=== PATIENT | male | born 1990 | race Caucasian/White ===

== ENCOUNTER 2017-08-03 21:02 | Emergency (ER) | payer OTHER ==
[2017-08-03 21:04] VITALS: BP 145/87
--- NOTE | 2017-08-03 22:59 | ED SKIN/ALLERGY COMPLAINT ---
History of Present Illness General Chief Complaint: Animal/Insect Bite Stated Complaint: "BIT BY TICK, RING AROUND IT" PER PT Source: patient Exam Limitations: no limitations Vital Signs & Intake/Output Vital Signs & Intake/Output Vital Signs Date Time Temp Pulse Resp B/P B/P Pulse O2 O2 Flow FiO2 Mean Ox Delivery Rate 08/04 2103 97.8 82 18 145/87 97 Room Air Allergies Coded Allergies: NO KNOWN ALLERGIES (07/21/11) Reconcile Medications No Known Home Medications Triage Note: PT TO TRIAGE WITH TICK BITE TO L INNER THIGH WITH RED RING AROUND IT THAT PT NOTICED YESTERDAY. PER PT FELT "FEVERISH" THIS MORNING. AFEBRILE IN TRIAGE, DENIES ANY OTHER COMPLAINTS. Triage Nurses Notes Reviewed? yes Onset: Gradual Duration: day(s): Timing: single episode today Severity: moderate Location: extremities HPI: 27-year-old male presents emergency department complaining of take bite to left thigh she noticed earlier this morning. He estimates that tick could've been present for less than 24 hours. Patient was able to remove take at home however noticed red ring around tick bite area. Patient states that the tick was a deer tick. Patient reports feeling feverish earlier this morning. He denies abdominal pain, nausea, vomiting, malaise, arthralgias, myalgias. (Alisia Romano) Past History Travel History Traveled to [place] past 21 day No Medical History Any Pertinent Medical History? none Neurological: NONE EENT: NONE Cardiovascular: NONE Respiratory: NONE Gastrointestinal: NONE Hepatic: NONE Renal: NONE Musculoskeletal: NONE Psychiatric: NONE Blood Disorders: NONE Cancer(s): NONE BATTERY STARTER/Reproductive: NONE Surgical History Surgical History: non-contributory Psychosocial History What is your primary language Afghan Tobacco Use: Current Daily Use Daily Tobacco Use Amount/Type: => 5 Cigarettes daily ETOH Use: denies use Family History Hx Contributory? No (Alisia Romano) Review of Systems Review of Systems Constitutional: Reports: see HPI. EENTM: Reports: no symptoms. Respiratory: Reports: no symptoms. Cardiovascular: Reports: no symptoms. GI: Reports: no symptoms. Genitourinary: Reports: no symptoms. Musculoskeletal: Reports: no symptoms. Skin: Reports: see HPI. Neurological/Psychological: Reports: no symptoms. Hematologic/Endocrine: Reports: no symptoms. Immunologic/Allergic: Reports: no symptoms. All Other Systems: Reviewed and Negative (Alisia Romano) Physical Exam Physical Exam General Appearance: well developed/nourished, no apparent distress, alert, awake Head: atraumatic, normal appearance Eyes: Bilateral: normal appearance. Ears, Nose, Throat: hearing grossly normal Neck: normal inspection, supple, full range of motion Respiratory: no respiratory distress Back: normal inspection, normal range of motion Extremities: punctate skin lesion to left thigh with 1cm surrounding erythema, nontender, no warmth or fluctuance Neurologic/Psych: awake, alert, oriented x 3 Skin: see left thigh exam as above (Alisia Romano) Progress Differential Diagnosis: abscess/cellulitis, allergic reaction, urticaria, erythema migrans Plan of Care: Orders Procedure Date/time Status LYME TITRE 08/03 2245 Active Laboratory Tests 08/03/170: Lyme Disease Antibody Pending Lyme titer sent to the lab. Patient reports take present for less than 24 hours , unlikely for transmission of Lyme disease in this short amount of time however patient was given prophylactic one-time dose of doxycycline here in the emergency department. No erythema migrans on physical exam at this time. Patient educated on signs and symptoms of Lyme disease and when to return to the emergency Department. Patient was given a referral to a primary care doctor. The patient agrees the plan of care. (Alisia Romano) Departure Departure Disposition: HOME OR SELF CARE Condition: Stable Clinical Impression Primary Impression: Tick bite Qualifiers: Encounter type: initial encounter Qualified Code: W57.XXXA - Bitten or stung by nonvenomous insect and other nonvenomous arthropods, initial encounter Referrals: Patient Has No Primary Care Dr (PCP/Family) Additional Instructions: Follow-up in 4-6 weeks for repeat Lyme titer. You were given a referral to a primary care doctor follow-up with. Monitor for signs and symptoms such as fevers, chills, bodyaches, worsening rash, abdominal pain, vomiting. With any of these symptoms please return for further evaluation. Please note that there might be incidental findings in your evaluation that are unrelated to the current emergency department visit. Please notify your primary care doctor about this emergency department visit in order to obtain and review all of the testing performed so that these incidental findings can be monitored as needed. If you had an x-ray performed, please understand that some fractures may not be seen on the initial set of x-rays. If your symptoms persist you might need a repeat set of x-rays to check for such a fracture. If you had a laceration evaluated, please understand that foreign bodies such as glass or wood may not be visible to the naked eye or on plain x-rays. If the wound becomes red, swollen, increasingly more painful or if there is any drainage from the wound, please have it reevaluated by a physician for the possibility of a retained foreign body. If you're unable to follow up as outlined in the discharge instructions please return to the emergency department. Thank you for choosing the [facility] Emergency Department for your care. It was a pleasure to serve you today. Departure Forms: Customer Survey General Discharge Information Prescriptions: Current Visit Scripts No Known Home Medications (Rosalba QUARLES,Alisia Flores) PA/BILLING ADJUDICATOR Co-Sign Statement Statement: ED Attending supervision documentation- I saw and evaluated the patient. I have also reviewed all the pertinent lab results and diagnostic results. I agree with the findings and the plan of care as documented in the PA's/BILLING ADJUDICATOR's documentation. x I have reviewed the ED Record and agree with the PA's/BILLING ADJUDICATOR's documentation. [] Additions or exceptions (if any) to the PAs/BILLING ADJUDICATOR's note and plan are summarized below: [] (Charlene CORONEL,Anastacio)
== END 2017-08-03 23:26 ==
LOC: ERH 21:02
DX: S70.362A Insect bite (nonvenomous), left thigh, initial encounter (principal); W57.XXXA Bitten or stung by nonvenomous insect and other nonvenomous arthropods, initial encounter; Y92.9 Unspecified place or not applicable; Y93.9 Activity, unspecified
CPT/HCPCS: 86618